=== PATIENT | female | born 1960 | race Caucasian/White ===

== ENCOUNTER → 2017-01-15 | Outpatient (CLI) | payer OTHER ==
[~2017-01-15] MED LIST: ASPI81CH CHEW; BAYEMIS; CALC1TAB87 PO; GABA300C5 PO; GLUCTES27; IPRASOL INH; METF500T PO; MULT-8; OMEP20TA PO; PRED50 PO; WOMETAB2 PO; [UNRECOGNIZED DRUG - CODE]; [UNRECOGNIZED DRUG - CODE]
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
== END ==
LOC: HRAD 12:27
PROVIDERS: ATTEND Family Medicine
DX: M25.561 Pain in right knee (principal); M25.512 Pain in left shoulder
CPT/HCPCS: 73030; 73564

== ENCOUNTER → 2017-01-15 | Outpatient (CLI) | payer OTHER ==
[2017-01-15 09:17] LABS: AUTOMATED NEUTROPHIL # 3.3 TH/MM3 (1.8-7.7); BASOPHIL % 0.8 % (0.0-2.0); EOSINOPHIL # 0.1 TH/MM3 (0-0.4); EOSINOPHIL % 1.6 % (0.0-4.0); HEMATOCRIT 39.1 % (35.0-46.0); HEMO FLAGS DIFF FINAL; LYMPH % 35.2 % (9.0-44.0); MEAN CELL VOLUME 79.5 FL (80.0-100.0); MEAN CORPUSCULAR HEMOGLOBIN 26.2 PG (27.0-34.0); MEAN CORPUSCULAR HGB CONC 32.9 % (32.0-36.0); MONO % 5.6 % (0.0-8.0); NEUT % 56.8 % (16.0-70.0); PLATELET COUNT 239 TH/MM3 (150-450); RED BLOOD COUNT 4.92 MIL/MM3 (4.00-5.30); RED CELL DISTRIBUTION WIDTH 15.3 % (11.6-17.2); WHITE BLOOD COUNT 5.8 TH/MM3 (4.0-11.0)
[2017-01-15 10:01] LABS: ALKALINE PHOSPHATASE 104 U/L (45-117); ALT (GPT) 24 U/L (10-53); ANION GAP 8 MEQ/L (5-15); AST (GOT) 26 U/L (15-37); BICARBONATE 25.4 MEQ/L (21.0-32.0); BLOOD UREA NITROGEN 10 MG/DL (7-18); CHLORIDE 107 MEQ/L (98-107); GLOMERULAR FILTRATION RATE 78 ML/MIN (>89); GLUCOSE,FASTING 96 MG/DL (74-99); HDL CHOLESTEROL 41.7 MG/DL (40.0-60.0); LDL CHOLESTEROL 123 MG/DL (0-99); POTASSIUM 4.4 MEQ/L (3.5-5.1); SODIUM (NA) 140 MEQ/L (136-145); TOTAL BILIRUBIN ADULT 0.6 MG/DL (0.2-1.0)
[2017-01-15 15:51] LABS: HEMOGLOBIN A1a 1.1 %; HEMOGLOBIN A1b 1.1 %; HEMOGLOBIN Ao 84.9 %; HEMOGLOBIN F 0.9 %; HEMOGLOBIN LA1C 1.9 %; HEMOGLOBIN P3 3.6 %
== END ==
LOC: CLAB 08:47
PROVIDERS: ATTEND Family Medicine
DX: E11.9 Type 2 diabetes mellitus without complications (principal); K21.9 Gastro-esophageal reflux disease without esophagitis; S82.91XA Unspecified fracture of right lower leg, initial encounter for closed fracture; X58.XXXA Exposure to other specified factors, initial encounter; E66.9 Obesity, unspecified
CPT/HCPCS: 36415; 80053; 80061; 83036; 84443; 85025

== ENCOUNTER 2017-05-03 15:09 | Emergency (ER) | payer OTHER ==
[~2017-05-03] VITALS: Ht 162.6 cm; Wt 120.0 kg
[~2017-05-03 15:09] MED LIST changes: -IPRASOL INH; -MULT-8; -PRED50 PO; -[UNRECOGNIZED DRUG - CODE]; -[UNRECOGNIZED DRUG - CODE]
[2017-05-03 15:11] VITALS: BP 164/87; PULSE 86; RESP 19; TEMP 98.7; O2SAT 96
--- NOTE | 2017-05-03 15:26 | PD ---
HPI Chief Complaint: Respiratory Distress Time Seen by Provider: 15:26 Travel History International Travel<30 days: No Contact w/Intl Traveler<30days: No Traveled to known affect area: No History of Present Illness HPI 56-year-old female history of chronic bronchitis presents to the emergency department for what feels like an exacerbation of her bronchitis. Patient states she has been out of her nebulized treatments and has been unable to take them. Her albuterol inhaler was not helping her symptoms completely. Symptoms have been worsening over the last 3 days. Denies any productive cough. Denies chest pain. Denies any fever or chills. Has no other symptoms to report. PFSH Past Medical History Hx Anticoagulant Therapy: Yes (BABY ASPIRIN DAILY TOOK THIS AM ) Arthritis: Yes Diabetes: Yes (TYPE II METFORMIN 500 BID TOOK THIS AM ) Diminished Hearing: No GERD: Yes Hypertension: Yes Respiratory: Yes (CHRONIC BRONCHITIS ) Immunizations Current: No ?: Not Menopausal: Yes Tubal Ligation: Yes (09/1986) Past Surgical History Joint Replacement: Yes (KNEE RECONSTRUCTIVE SURGERY 2015) Other Surgery: Yes Social History Alcohol Use: No Tobacco Use: No Substance Use: No Allergies-Medications (Allergen,Severity, Reaction): Coded Allergies: No Known Allergies (Unverified , 05/03/17) Reported Meds & Prescriptions Reported Meds & Active Scripts Active Prednisone 50 Mg Tab 50 Mg PO DAILY 5 Days Duoneb (Ipratropium-Albuterol Neb) 0.5-2.5 Mg/3 Ml Neb 1 Nebule INH Q4HR NEB PRN Rashard Contour Next Blood Test Strips (Blood Glucose Test Strips) 1 Rosamaria Rosamaria 1 Strip .ROUTE DIRECTED Rashard Microlet Lancets 1 Mis Mis 1 Ea .ROUTE DIRECTED Metformin (Metformin HCl) 500 Mg Tab 500 Mg PO BIDPC With meals Omeprazole 20 Mg Tab 20 Mg PO DAILY Gabapentin 300 Mg Cap 300 Mg PO TID Reported Womens Daily Formula (Multiple Vitamins W/ Minerals) 1 Tab Tab 1 Tab PO DAILY Aspirin 81 Mg Chew 81 Mg CHEW DAILY Calcium 600 with Vitamin D (Calcium Carbonate-Cholecalciferol) 600-400 mg-Unit Tab 1 Tab PO DAILY Review of Systems Except as stated in HPI: all other systems reviewed are Neg Physical Exam Narrative GENERAL: Obese female patient, in no acute distress SKIN: Focused skin assessment warm/dry. HEAD: Atraumatic. Normocephalic. EYES: Pupils equal and round. No scleral icterus. No injection or drainage. ENT: No nasal bleeding or discharge. Mucous membranes pink and moist. NECK: Trachea midline. No JVD. CARDIOVASCULAR: Regular rate and rhythm. No murmur appreciated. RESPIRATORY: No accessory muscle use. Diminished throughout. Breath sounds equal bilaterally. GASTROINTESTINAL: Abdomen soft, non-tender, nondistended. Hepatic and splenic margins not palpable. MUSCULOSKELETAL: No obvious deformities. No clubbing. No cyanosis. No edema. NEUROLOGICAL: Awake and alert. No obvious cranial nerve deficits. Motor grossly within normal limits. Normal speech. PSYCHIATRIC: Appropriate mood and affect; insight and judgment normal. Data Data Last Documented VS Vital Signs Date Time Temp Pulse Resp B/P Pulse Ox O2 Delivery O2 Flow Rate FiO2 05/03/17 15:49 88 18 97 Nasal Cannula 2 05/03/17 15:11 98.7 164/87 Orders Complete Blood Count With Diff (05/03/17 15:33) Basic Metabolic Panel (Bmp) (05/03/17 15:33) B-Type Natriuretic Peptide (05/03/17 15:33) Iv Access Insert/Monitor (05/03/17 15:33) Electrocardiogram (05/03/17 15:33) Ecg Monitoring (05/03/17 15:33) Oximetry (05/03/17 15:33) Oxygen Administration (05/03/17 15:33) Chest, Single Ap (05/03/17 15:33) Sodium Chloride 0.9% Flush (Ns Flush) (05/03/17 15:45) Methylprednisolone So Succ Inj (Solumedr (05/03/17 15:45) Albuterol-Ipratropium Neb (Duoneb Neb) (05/03/17 15:45) Labs Laboratory Tests Test 05/03/17 15:44 White Blood Count 7.7 TH/MM3 Red Blood Count 4.74 MIL/MM3 Hemoglobin 12.4 GM/DL Hematocrit 37.8 % Mean Corpuscular Volume 79.8 FL Mean Corpuscular Hemoglobin 26.3 PG Mean Corpuscular Hemoglobin 32.9 % Concent Red Cell Distribution Width 16.0 % Platelet Count 248 TH/MM3 Mean Platelet Volume 8.0 FL Neutrophils (%) (Auto) 55.1 % Lymphocytes (%) (Auto) 35.4 % Monocytes (%) (Auto) 6.9 % Eosinophils (%) (Auto) 1.8 % Basophils (%) (Auto) 0.8 % Neutrophils # (Auto) 4.2 TH/MM3 Lymphocytes # (Auto) 2.7 TH/MM3 Monocytes # (Auto) 0.5 TH/MM3 Eosinophils # (Auto) 0.1 TH/MM3 Basophils # (Auto) 0.1 TH/MM3 CBC Comment DIFF FINAL Differential Comment Sodium Level 139 MEQ/L Potassium Level 3.8 MEQ/L Chloride Level 106 MEQ/L Carbon Dioxide Level 27.1 MEQ/L Anion Gap 6 MEQ/L Blood Urea Nitrogen 7 MG/DL Creatinine 0.72 MG/DL Estimat Glomerular Filtration 84 ML/MIN Rate Random Glucose 109 MG/DL Calcium Level 8.5 MG/DL B-Type Natriuretic Peptide 16 PG/ML MDM Medical Decision Making Medical Screen Exam Complete: Yes Emergency Medical Condition: Yes Medical Record Reviewed: Yes Differential Diagnosis Bronchitis versus pneumonia versus influenza versus exacerbation of COPD Narrative Course 56 year old female presents to emergency department for evaluation. Patient appears well and without distress. She does have diminished sounds throughout. She is given IV Solu-Medrol as well as 3 DuoNeb treatments. Upon reassessment , she reports marked improvement in her symptoms. She'll begin refill of DuoNeb treatments and encouraged to use them regularly. She is also counseled on these steroids in the transient increase in her blood glucose. She agrees to monitor this closely. She agrees to return immediately if any acute worsening of symptoms. Diagnosis Primary Impression: Exacerbation of chronic bronchiolitis Referrals: Primary Care Physician Patient Instructions: Chronic Bronchitis (ED), General Instructions Additional Instructions: Continue medication as already prescribed Monitor blood glucose closely as steroids will cause an increase in her blood glucose. Follow-up with a primary care provider Return immediately with any acute worsening of symptoms Med/Other Pt SpecificInfo: Prescription(s) given Scripts Prednisone 50 Mg Tab50 Mg PO DAILY 5 Days Ref 0 Prov:Calista Berg 05/03/17 Ipratropium-Albuterol Neb (Duoneb)0.5-2.5 Mg/3 Ml Neb1 Nebule INH Q4HR NEB PRN ( SOB/WHEEZING) #120 NEBULE Ref 0 Prov:Calista Berg 05/03/17 Disposition: 01 DISCHARGE HOME Condition: Stable Calista Berg May 03, 2017 15:26
[2017-05-03] MEDS ORDERED: SODIUM CHLORIDE 0.9% FLUSH 10 ML FLUSH IVF PRN (15:45)
[2017-05-03] MEDS ORDERED: methylPREDNISolone SOD SUCC 125 MG/2 ML VIAL IVP ONE (15:45)
[2017-05-03 15:49] VITALS: O2SAT 97
[2017-05-03 16:03] LABS: AUTOMATED NEUTROPHIL # 4.2 TH/MM3 (1.8-7.7); BASOPHIL # 0.1 TH/MM3 (0-0.2); BASOPHIL % 0.8 % (0.0-2.0); EOSINOPHIL # 0.1 TH/MM3 (0-0.4); EOSINOPHIL % 1.8 % (0.0-4.0); HEMATOCRIT 37.8 % (35.0-46.0); HEMO FLAGS DIFF FINAL; LYMPH % 35.4 % (9.0-44.0); LYMPHOCYTE # 2.7 TH/MM3 (1.0-4.8); MEAN CELL VOLUME 79.8 FL (80.0-100.0); MEAN CORPUSCULAR HEMOGLOBIN 26.3 PG (27.0-34.0); MEAN CORPUSCULAR HGB CONC 32.9 % (32.0-36.0); MONO % 6.9 % (0.0-8.0); NEUT % 55.1 % (16.0-70.0); PLATELET COUNT 248 TH/MM3 (150-450); RED BLOOD COUNT 4.74 MIL/MM3 (4.00-5.30); WHITE BLOOD COUNT 7.7 TH/MM3 (4.0-11.0)
--- NOTE | 2017-05-03 16:09 | RADRPT ---
EXAM DATE/TIME: 05/03/2017 15:40 [facility] COMPARISON: SHOULDER LEFT COMPLETE (>2VWS), January 15, 2017, 12:57. INDICATIONS : Shortness of breath and chest tightness. MEDICAL HISTORY : None. SURGICAL HISTORY : None. ENCOUNTER: Initial ACUITY: 1 day PAIN SCORE: 0/10 LOCATION: Bilateral chest FINDINGS: There is mild cardiomegaly. There are chronic interstitial changes within the pulmonary parenchyma. T he lungs are otherwise clear. The visualized bony structures are grossly intact. CONCLUSION: Heart is at the upper limits of normal in size. The lungs are clear. No acute abnormality is identifi ed. Kevin Lindsey MD on May 03, 2017 at 16:05 Board Certified Radiologist. This report was verified electronically.
[2017-05-03 16:26] LABS: BICARBONATE 27.1 MEQ/L (21.0-32.0); POTASSIUM 3.8 MEQ/L (3.5-5.1)
[2017-05-03] MEDS: RESP: ALBUTEROL 2.5 MG/IPRATROPIUM 0.5 MG NEB (SCH) INH ×2 (16:49→16:50)
[2017-05-03] MEDS ORDERED: IPRASOL INH (17:12)
[2017-05-03] MEDS ORDERED: PRED50 PO (17:12)
--- NOTE | 2017-05-04 12:28 | EKG ---
Date Performed: 05/03/2017 Time Performed: 15:43:38 PTAGE: 56 years EKG: Sinus rhythm LOW QRS VOLTAGE IN PRECORDIAL LEADS MODERATE VOLTAGE CRITERIA FOR LVH, CONSIDER NORMAL VARIANT POSSI BLE ANTERIOR MYOCARDIAL INFARCTION BORDERLINE ECG NO PREVIOUS TRACING DOCTOR: Rolando Duncan Interpretating Date/Time 05/04/2017 12:24:29
== END 2017-05-03 18:13 | disposition home or self-care (01) ==
LOC: NEPC 15:09
DX: J21.9 Acute bronchiolitis, unspecified (principal); J42 Unspecified chronic bronchitis; R06.02 Shortness of breath; E11.8 Type 2 diabetes mellitus with unspecified complications; I51.7 Cardiomegaly; Z79.82 Long term (current) use of aspirin
CPT/HCPCS: 71010; 80048; 83880; 85025; 93005; 94640; 94664; 96374; 99285; J2930

== ENCOUNTER 2017-11-25 14:07 | Observation (INO) | payer OTHER ==
[~2017-11-25] VITALS: Ht 165.1 cm; Wt 136.5 kg
[~2017-11-25 14:07] MED LIST changes: +ASPI-516 CHEW; -ASPI81CH CHEW; +IPRASOL INH; -OMEP20TA PO; +OMEP20TA93 PO; +PRED50 PO
[2017-11-25 14:13] VITALS: BP 206/102; PULSE 83; RESP 20; TEMP 98.2; O2SAT 97
--- NOTE | 2017-11-25 15:29 | RADRPT ---
EXAM DATE/TIME: 11/25/2017 15:06 [facility] COMPARISON: No previous studies available for comparison. INDICATIONS : Pressure in chest, vertigo and shortness of breath for several hours today MEDICAL HISTORY : chronic bonchitis SURGICAL HISTORY : bilateral tib/fib ORIF ENCOUNTER: Initial ACUITY: 1 day PAIN SCORE: 5/10 LOCATION: Bilateral chest FINDINGS: PA and lateral views of the chest demonstrate the lungs to be symmetrically aerated without evidence of mass, infiltrate or effusion. The cardiomediastinal contours are unremarkable. Degenerative spon dylosis of the thoracic spine. Osseous structures are intact. CONCLUSION: 1. No acute cardiopulmonary disease. Wero Solares MD on November 25, 2017 at 15:12 Board Certified Radiologist. This report was verified electronically.
[2017-11-25 16:23] LABS: AUTOMATED NEUTROPHIL # 3.8 TH/MM3 (1.8-7.7); BASOPHIL % 0.7 % (0.0-2.0); EOSINOPHIL # 0.1 TH/MM3 (0-0.4); EOSINOPHIL % 1.6 % (0.0-4.0); HEMATOCRIT 40.3 % (35.0-46.0); HEMOGLOBIN 13.5 GM/DL (11.6-15.3); LYMPH % 38.3 % (9.0-44.0); LYMPHOCYTE # 2.8 TH/MM3 (1.0-4.8); MEAN CELL VOLUME 80.7 FL (80.0-100.0); MEAN CORPUSCULAR HGB CONC 33.5 % (32.0-36.0); MEAN PLATELET VOLUME 8.3 FL (7.0-11.0); MONO % 7.2 % (0.0-8.0); MONOCYTE # 0.5 TH/MM3 (0-0.9); NEUT % 52.2 % (16.0-70.0); PLATELET COUNT 252 TH/MM3 (150-450); RED BLOOD COUNT 4.99 MIL/MM3 (4.00-5.30); RED CELL DISTRIBUTION WIDTH 15.7 % (11.6-17.2); WHITE BLOOD COUNT 7.4 TH/MM3 (4.0-11.0)
[2017-11-25 16:33] LABS: INTERNATIONAL NORMALIZED RATIO 1.1 RATIO; PROTHROMBIN TIME - PATIENT 10.7 SEC (9.8-11.6)
[2017-11-25 16:45] LABS: ALBUMIN 3.2 GM/DL (3.4-5.0); ALT (GPT) 58 U/L (10-53); AST (GOT) 51 U/L (15-37); BICARBONATE 26.7 MEQ/L (21.0-32.0); BLOOD UREA NITROGEN 7 MG/DL (7-18); CALCIUM 8.9 MG/DL (8.5-10.1); CHLORIDE 103 MEQ/L (98-107); CREATININE 0.78 MG/DL (0.50-1.00); GLOMERULAR FILTRATION RATE 76 ML/MIN (>89); GLUCOSE,RANDOM 101 MG/DL (74-106); MAGNESIUM 2.2 MG/DL (1.5-2.5); SODIUM (NA) 138 MEQ/L (136-145)
[2017-11-25 16:48] LABS: ALKALINE PHOSPHATASE 123 U/L (45-117); TOTAL BILIRUBIN ADULT 0.4 MG/DL (0.2-1.0); TOTAL PROTEIN 8.3 GM/DL (6.4-8.2); TROPONIN I LESS THAN 0.02 NG/ML (0.02-0.05)
[2017-11-25 19:53] VITALS: BP 146/82; PULSE 82; TEMP 98.3; O2SAT 96
--- NOTE | 2017-11-25 20:27 | PD ---
HPI Chief Complaint: Cardiac Complaint Time Seen by Provider: 20:05 Travel History International Travel<30 days: No Contact w/Intl Traveler<30days: No Traveled to known affect area: No History of Present Illness HPI 56yo F with PMH of DM, obesity here with c/o chest pain since this morning. States it feels like an elephant sitting on her chest. Chest pain is pressure like and midsternal, nonradiating and constant. No exacerbating or alleviating factors. Pt also had nausea, vomiting and nonbloody diarrhea for 4 days. However, denies any abdominal pain, sob, fever, blood in stool. Pt has no safety representative and never had chest pain before. Denies any stress test. PFSH Past Medical History Hx Anticoagulant Therapy: Yes (BABY ASPIRIN DAILY TOOK THIS AM ) Arthritis: Yes Diabetes: Yes (TYPE II METFORMIN 500 BID TOOK THIS AM ) Patient Takes Glucophage: Yes Diminished Hearing: No GERD: Yes Hypertension: Yes Respiratory: Yes (CHRONIC BRONCHITIS ) Immunizations Current: No Tetanus Vaccination: > 5 Years Menopausal: Yes Tubal Ligation: Yes (09/1986) Past Surgical History Joint Replacement: Yes (KNEE RECONSTRUCTIVE SURGERY 2015) Other Surgery: Yes (tubal ligatation) Social History Alcohol Use: No Tobacco Use: No Substance Use: No Allergies-Medications (Allergen,Severity, Reaction): Coded Allergies: No Known Allergies (Unverified Allergy, Unknown, 11/26/17) Reported Meds & Prescriptions Reported Meds & Active Scripts Active Rashard Contour Next Blood Test Strips (Blood Glucose Test Strips) 1 Rosamaria Rosamaria 1 Strip .ROUTE BID Rashard Microlet Lancets 1 Mis Mis 1 Ea .ROUTE BID Omeprazole 20 Mg Tab 20 Mg PO DAILY Metformin (Metformin HCl) 500 Mg Tab 500 Mg PO BIDPC With meals Duoneb (Ipratropium-Albuterol Neb) 0.5-2.5 Mg/3 Ml Neb 1 Nebule INH Q4HR NEB PRN Reported Womens Daily Formula (Multiple Vitamins W/ Minerals) 1 Tab Tab 1 Tab PO DAILY Aspirin 81 Mg Chew 81 Mg CHEW DAILY Calcium 600 with Vitamin D (Calcium Carbonate-Cholecalciferol) 600-400 mg-Unit Tab 1 Tab PO DAILY Review of Systems Except as stated in HPI: all other systems reviewed are Neg Physical Exam Narrative GENERAL: 56yo F in mild distress. SKIN: Focused skin assessment warm/dry. HEAD: Atraumatic. Normocephalic. CARDIOVASCULAR: Regular rate and rhythm. No murmur appreciated. RESPIRATORY: No accessory muscle use. Clear to auscultation. Breath sounds equal bilaterally. GASTROINTESTINAL: Abdomen soft, non-tender, nondistended. MUSCULOSKELETAL: No obvious deformities. No clubbing. No cyanosis. Trace bilateral lower extremity edema. NEUROLOGICAL: Awake and alert. No obvious cranial nerve deficits. Motor grossly within normal limits. Normal speech. PSYCHIATRIC: Appropriate mood and affect; insight and judgment normal. Data Data Last Documented VS Vital Signs Date Time Temp Pulse Resp B/P (MAP) Pulse Ox O2 Delivery O2 Flow Rate FiO2 11/25/17 20:58 88 20 137/81 (99) 93 Room Air 11/25/17 19:53 98.3 Orders Orders Electrocardiogram (11/25/17 14:35) Ckmb (Isoenzyme) Profile (11/25/17 14:35) Complete Blood Count With Diff (11/25/17 14:35) Comprehensive Metabolic Panel (11/25/17 14:35) Magnesium (Mg) (11/25/17 14:35) Prothrombin Time / Inr (Pt) (11/25/17 14:35) Act Partial Throm Time (Ptt) (11/25/17 14:35) Troponin I (11/25/17 14:35) Chest, Pa & Lat (11/25/17 14:35) CKMB (11/25/17 15:47) CKMB% (11/25/17 15:47) Ondansetron Inj (Zofran Inj) (11/25/17 20:30) B-Type Natriuretic Peptide (11/25/17 20:18) Aspirin Chew (Aspirin Chew) (11/25/17 20:30) Nitroglycerin Sl (Nitrostat Sl) (11/25/17 20:30) Activity Bed Rest With Brp (11/25/17 21:54) Vital Signs (Adult) Q4H (11/25/17 21:54) Cardiac Rhythm .As Directed (11/25/17 21:54) Notify Dr: Other .PRN (11/25/17 21:54) Notify Parameters (11/25/17 21:54) Resp Oxygen Nasal Cannula (11/25/17 ) Ckmb (Isoenzyme) Profile (11/25/17 21:54) Ckmb (Isoenzyme) Profile (11/26/17 00:54) Troponin I (11/25/17 21:54) Troponin I (11/26/17 00:54) Electrocardiogram (11/25/17 21:54) Electrocardiogram (11/26/17 00:54) ^ Obtain (11/25/17 21:54) Sodium Chloride 0.9% Flush (Ns Flush) (11/25/17 22:00) Sodium Chloride 0.9% Flush (Ns Flush) (11/26/17 09:00) Gas Worker / Telemetry [id number].[id number] (11/25/17 21:54) Admit Order (Ed Use Only) (11/25/17 21:54) CKMB (11/25/17 22:12) CKMB% (11/25/17 22:12) CKMB (11/26/17 02:35) CKMB% (11/26/17 02:35) Labs Laboratory Tests Test 11/25/17 15:47 11/25/17 20:35 White Blood Count 7.4 TH/MM3 Red Blood Count 4.99 MIL/MM3 Hemoglobin 13.5 GM/DL Hematocrit 40.3 % Mean Corpuscular Volume 80.7 FL Mean Corpuscular Hemoglobin 27.0 PG Mean Corpuscular Hemoglobin Concent 33.5 % Red Cell Distribution Width 15.7 % Platelet Count 252 TH/MM3 Mean Platelet Volume 8.3 FL Neutrophils (%) (Auto) 52.2 % Lymphocytes (%) (Auto) 38.3 % Monocytes (%) (Auto) 7.2 % Eosinophils (%) (Auto) 1.6 % Basophils (%) (Auto) 0.7 % Neutrophils # (Auto) 3.8 TH/MM3 Lymphocytes # (Auto) 2.8 TH/MM3 Monocytes # (Auto) 0.5 TH/MM3 Eosinophils # (Auto) 0.1 TH/MM3 Basophils # (Auto) 0.0 TH/MM3 CBC Comment DIFF FINAL Differential Comment Prothrombin Time 10.7 SEC Prothromb Time International Ratio 1.1 RATIO Activated Partial Thromboplast Time 25.4 SEC Blood Urea Nitrogen 7 MG/DL Creatinine 0.78 MG/DL Random Glucose 101 MG/DL Total Protein 8.3 GM/DL Albumin 3.2 GM/DL Calcium Level 8.9 MG/DL Magnesium Level 2.2 MG/DL Alkaline Phosphatase 123 U/L Aspartate Amino Transf (AST/SGOT) 51 U/L Alanine Aminotransferase (ALT/SGPT) 58 U/L Total Bilirubin 0.4 MG/DL Sodium Level 138 MEQ/L Potassium Level 4.0 MEQ/L Chloride Level 103 MEQ/L Carbon Dioxide Level 26.7 MEQ/L Anion Gap 8 MEQ/L Estimat Glomerular Filtration Rate 76 ML/MIN Total Creatine Kinase 118 U/L Creatine Kinase MB LESS THAN 0.5 NG/ML Troponin I LESS THAN 0.02 NG/ML B-Type Natriuretic Peptide 10 PG/ML MDM Medical Decision Making Medical Screen Exam Complete: Yes Emergency Medical Condition: Yes Interpretation(s) EKG: NSR 78bpm. LAD. LVH. TWI III. Differential Diagnosis ACS vs. Pneumonia vs. pericarditis vs. GERD vs. gastroenteritis vs. dehydration Narrative Course 56yo F with midsternal chest pain today. Said it is pressure like and has improved a little on its own, about a 5 out of 10 now. Took aspirin 81mg PO today. Labs reviewed, no leukocytosis. AST/ALT and alk phos elevated. Pt has no abdominal pain on exam. Pt said that she had elevated liver enzymes in October 2017 and her primary care physician is addressing that. Troponin negative. CXR negative. Will give more aspirin and sublingual nitro PRN chest pain. Will admit to chest pain center. Pt reevaluated after sublingual nitro and said pain has improved. Diagnosis Primary Impression: Chest pain Qualified Codes: R07.9 - Chest pain, unspecified Admitting Information Admitting Physician Requests: Deloris Shepard DO Nov 25, 2017 20:27
[2017-11-25] MEDS ORDERED: NITROGLYCERIN 0.4 MG SL 25 TABS/BTL SL PRN (20:30)
[2017-11-25] MEDS ORDERED: ONDANSETRON HCL 4 MG/2 ML VIAL IV PUSH ONE (20:30)
[2017-11-25] MEDS ORDERED: ASPIRIN 81 MG CHEW TAB PO ONE (20:30)
[2017-11-25 20:58] VITALS: BP 137/81; PULSE 88; RESP 20; O2SAT 93
[2017-11-25] MEDS ORDERED: IOHEXOL 350 MG/ML 100 ML BTL (for Cath Lab) OTHER ONE (21:57)
[2017-11-25] MEDS ORDERED: IOHEXOL 350 MG/ML 50 ML BTL (for Cath Lab) OTHER ONE (21:57)
[2017-11-25] MEDS ORDERED: SODIUM CHLORIDE 0.9% FLUSH 10 ML FLUSH IV FLUSH PRN (22:00)
[2017-11-25 22:58] LABS: TROPONIN I LESS THAN 0.02 NG/ML (0.02-0.05)
[2017-11-26] VITALS (7 sets, daily range): BP systolic 92–138; BP diastolic 58–77; PULSE 69–86; RESP 16–20; TEMP 97.5–98.5; O2SAT 93–96
[2017-11-26 03:04] LABS: TROPONIN I LESS THAN 0.02 NG/ML (0.02-0.05)
[2017-11-26] MEDS ORDERED: ONDANSETRON HCL 4 MG/2 ML VIAL IV PUSH PRN (08:00)
[2017-11-26] MEDS ORDERED: ACETAMINOPHEN 500 MG CPLT PO PRN (08:00)
--- NOTE | 2017-11-26 08:40 | HHI.HP ---
[facility] Primary Care Physician Dr. Padilla Chief Complaint Chest pain History of Present Illness 56-year-old female with history of type 2 diabetes [id number], GERD, and vertigo presents to the emergency room for further evaluation of chest pain. Onset yesterday 10 AM. History of vertigo always accompanied also with chest pressure. Yesterday developed vertigo and chest pressure although duration lasted longer than normal, approximately 7 hours. Severity moderate. No radiation. No associated symptoms nausea, vomiting, dyspnea, or diaphoresis. No known precipitating or relieving factors. Normally she takes Dramamine with relief. Yesterday took Dramamine without relief therefore came to the ER for further evaluation. Review of Systems General: No fatigue,weakness, fever, chills, or recent illness change in appetite. Has been adjusted health. HEENT: No MATAMOROS, no vision changes, no nasal congestion or drainage, no dysphasia CV: As stated above. Currently chest pain and pressure free. No known coronary artery disease. RESP: No SOB, cough, wheeze, no recent upper respiratory infection. GI: No nausea, vomiting, bowel changes, diarrhea, constipation, pain, distention , melena, or blood in the stool. : No dysuria, urgency, frequency EXT: No lower leg edema, no paraesthesias MS: No discomfort or change in ROM NEURO: No change in memory, difficulty with balance, LOC, motor/sensory deficits PSYCH: No anxiety, depression, SKIN: No rashes, no concerning lesions Past Family Social History Allergies: Coded Allergies: No Known Allergies (Unverified Allergy, Unknown, 11/26/17) Past Medical History Type 2 diabetes [id number]-[id number], GERD, chronic bronchitis, vertigo Past Surgical History Tubal ligation Reported Medications Reported Meds & Active Scripts Active Rashard Contour Next Blood Test Strips (Blood Glucose Test Strips) 1 Rosamaria Rosamaria 1 Strip .ROUTE BID Rashard Microlet Lancets 1 Mis Mis 1 Ea .ROUTE BID Omeprazole 20 Mg Tab 20 Mg PO DAILY Metformin (Metformin HCl) 500 Mg Tab 500 Mg PO BIDPC With meals Duoneb (Ipratropium-Albuterol Neb) 0.5-2.5 Mg/3 Ml Neb 1 Nebule INH Q4HR NEB PRN Womens Daily Formula (Multiple Vitamins W/ Minerals) 1 Tab Tab 1 Tab PO DAILY Aspirin 81 Mg Chew 81 Mg CHEW DAILY Calcium 600 with Vitamin D (Calcium Carbonate-Cholecalciferol) 600-400 mg-Unit Tab 1 Tab PO DAILY Active Ordered Medications Current Medications Medications (Trade) Dose Ordered Sig/Zhou Route Start Time Stop Time Status Last Admin (Nitrostat Sl) 0.4 mg Q5M PRN SL 11/25/17 20:30 (NS Flush) 2 ml UNSCH PRN IV FLUSH 11/25/17 22:00 (NS Flush) 2 ml BID IV FLUSH 11/26/17 09:00 (Tylenol) 500 mg Q4H PRN PO 11/26/17 08:00 UNV (Zofran Inj) 4 mg Q6H PRN IV PUSH 11/26/17 08:00 UNV (Aspirin) 325 mg DAILY PO 11/26/17 09:00 UNV Non-Formulary Medication 20 mg DAILY PO 11/26/17 09:00 UNV Family History Noncontributory for early cardiovascular disease. Social History Known diabetes. No known hypertension or hyperlipidemia. Past cardiac testing None Physical Exam Vital Signs Vital Signs Date Time Temp Pulse Resp B/P (MAP) Pulse Ox O2 Delivery O2 Flow Rate FiO2 11/26/17 04:35 98.2 69 20 92/67 (75) 11/25/17 20:58 88 20 137/81 (99) 93 Room Air 11/25/17 20:07 Room Air 11/25/17 20:02 (136) 11/25/17 19:53 98.3 82 146/82 (103) 96 11/25/17 14:13 98.2 83 20 206/102 (136) 97 Physical Exam GENERAL: Alert WN, WD, NAD, pleasant, morbidly obese female HEAD: NC, AT NECK: Supple, no masses, trachea midline CV: RRR, without murmur, rub, gallop, no JVD, S1-S2 no S3-S4. Chest wall nontender with palpation. RESP: Clear lungs throughout bilateral, no crackles, wheeze, rhonchi, symmetrical chest rise, nonlabored, able to speak in full sentences ABD: Soft, NT, ND, no masses, positive bowel tones EXT: Pulses +24, no dependent edema MS: Normal tone 4 extremities, no obvious deformities, full range of motion NEURO: CN II through CN XII grossly intact, motor strength 5/5 PSYCH: A+O 3, pleasant affect, appropriate speech, mood, insight and judgment SKIN: Normal turgor, normal texture Laboratory Laboratory Tests Test 11/25/17 15:47 11/25/17 20:35 11/25/17 22:12 11/26/17 02:35 White Blood Count 7.4 Red Blood Count 4.99 Hemoglobin 13.5 Hematocrit 40.3 Mean Corpuscular Volume 80.7 Mean Corpuscular Hemoglobin 27.0 Mean Corpuscular Hemoglobin Concent 33.5 Red Cell Distribution Width 15.7 Platelet Count 252 Mean Platelet Volume 8.3 Neutrophils (%) (Auto) 52.2 Lymphocytes (%) (Auto) 38.3 Monocytes (%) (Auto) 7.2 Eosinophils (%) (Auto) 1.6 Basophils (%) (Auto) 0.7 Neutrophils # (Auto) 3.8 Lymphocytes # (Auto) 2.8 Monocytes # (Auto) 0.5 Eosinophils # (Auto) 0.1 Basophils # (Auto) 0.0 CBC Comment DIFF FINAL Differential Comment Prothrombin Time 10.7 Prothromb Time International Ratio 1.1 Activated Partial Thromboplast Time 25.4 Blood Urea Nitrogen 7 Creatinine 0.78 Random Glucose 101 Total Protein 8.3 Albumin 3.2 Calcium Level 8.9 Magnesium Level 2.2 Alkaline Phosphatase 123 Aspartate Amino Transf (AST/SGOT) 51 Alanine Aminotransferase (ALT/SGPT) 58 Total Bilirubin 0.4 Sodium Level 138 Potassium Level 4.0 Chloride Level 103 Carbon Dioxide Level 26.7 Anion Gap 8 Estimat Glomerular Filtration Rate 76 Total Creatine Kinase 118 113 109 Creatine Kinase MB LESS THAN 0.5 LESS THAN 0.5 LESS THAN 0.5 Troponin I LESS THAN 0.02 LESS THAN 0.02 LESS THAN 0.02 B-Type Natriuretic Peptide 10 Result Diagram: 11/25/17 1547 11/25/17 1547 Imaging Last 48 hours Impressions Chest X-Ray 11/25/17 1435 Signed Impressions: Service Date/Time: Saturday, November 25, 2017 15:06 - CONCLUSION: 1. No acute cardiopulmonary disease. Wero Solares MD Course EKG Normal sinus rhythm, normal axis, no ST or T-segment changes Caprini VTE Risk Assessment Caprini VTE Risk Assessment: No/Low Risk (score <= 1) Caprini Risk Assessment Model Point Value = 1 Point Value = 2 Point Value = 3 Point Value = 5 Age 41-60 Minor surgery BMI > 25 kg/m2 Swollen legs Varicose veins or History of unexplained or recurrent spontaneous Oral contraceptives or hormone replacement Sepsis (< 1 month) Serious lung disease, including pneumonia (< 1 month) Abnormal pulmonary function Acute myocardial infarction Congestive heart failure (< 1 month) History of inflammatory bowel disease Medical patient at bed rest Age 61-74 Arthroscopic surgery Major open surgery (> 45 min) Laparoscopic surgery (> 45 min) Malignancy Confined to bed (> 72 hours) Immobilizing plaster cast Central venous access Age >= 75 History of VTE Family history of VTE Factor V Leiden Prothrombin [id number] Lupus anticoagulant Anticardiolipin antibodies Elevated serum homocysteine Heparin-induced thrombocytopenia Other congenital or acquired thrombophilia Stroke (< 1 month) Elective arthroplasty Hip, pelvis, or leg fracture Acute spinal cord injury (< 1 month) Prophylaxis Regimen Total Risk Factor Score Risk Level Prophylaxis Regimen 0-1 Low Early ambulation 2 Moderate Order ONE of the following: *Sequential Compression Device (SCD) *Heparin 5000 units SQ BID 3-4 Higher Order ONE of the following medications: *Heparin 5000 units SQ TID *Enoxaparin/Lovenox 40 mg SQ daily (WT < 150 kg, CrCl > 30 mL/min) *Enoxaparin/Lovenox 30 mg SQ daily (WT < 150 kg, CrCl > 10-29 mL/min) *Enoxaparin/Lovenox 30 mg SQ BID (WT < 150 kg, CrCl > 30 mL/min) AND/OR *Sequential Compression Device (SCD) 5 or more Highest Order ONE of the following medications: *Heparin 5000 units SQ TID (Preferred with Epidurals) *Enoxaparin/Lovenox 40 mg SQ daily (WT < 150 kg, CrCl > 30 mL/min) *Enoxaparin/Lovenox 30 mg SQ daily (WT < 150 kg, CrCl > 10-29 mL/min) *Enoxaparin/Lovenox 30 mg SQ BID (WT < 150 kg, CrCl > 30 mL/min) AND *Sequential Compression Device (SCD) Assessment and Plan Assessment and Plan #1 Atypical chest pain-admitted chest pain center. Ruled out with 3 sets of EKGs, cardiac enzymes, monitor overnight. Seen and evaluated by Dr. Theodore Geiger. [facility] If unremarkable, plan to discharge home with follow-up with PCP. Patient agreeable and care. #2 Diabetes type 2-hold oral anti glycemic at this time #3 GERD-continue omeprazole 15:45 Lilyan report reviewed and discussed with Dr. Geiger. Patient's story somewhat atypical however due to risk factors will consult cardiology. Discussed with patient in length and agreeable to plan of care. Fely Alaniz Nov 26, 2017 08:40
[2017-11-26] MEDS ORDERED: ASPIRIN 325 MG TAB PO SCH (09:00)
--- NOTE | 2017-11-26 09:08 | EKG ---
Date Performed: 11/26/2017 Time Performed: 01:17:33 PTAGE: 56 years EKG: Sinus rhythm LOW QRS VOLTAGE IN PRECORDIAL LEADS BORDERLINE ECG PREVIOUS TRACING : 11/25/2017 22.09 Since previous tracing, no significant change noted DOCTOR: Theodore Geiger Interpretating Date/Time 11/26/2017 09:07:28
--- NOTE | 2017-11-26 09:11 | EKG ---
Date Performed: 11/25/2017 Time Performed: 22:09:04 PTAGE: 56 years EKG: Sinus rhythm LOW QRS VOLTAGE IN PRECORDIAL LEADS POSSIBLE LEFT VENTRICULAR HYPERTROPHY ABNORMAL ECG PREVIOUS TRACING : 11/25/2017 16.00 Since previous tracing, no significant change noted DOCTOR: Theodore Geiger Interpretating Date/Time 11/26/2017 09:10:39
--- NOTE | 2017-11-26 09:21 | EKG ---
Date Performed: 11/25/2017 Time Performed: 16:00:51 PTAGE: 56 years EKG: Sinus rhythm MODERATE VOLTAGE CRITERIA FOR LVH, CONSIDER NORMAL VARIANT BORDERLINE ECG PREVIOUS TRACING : 05/03/2017 15.43 Since previous tracing, no significant change noted DOCTOR: Theodore Geiger Interpretating Date/Time 11/26/2017 09:21:08
[2017-11-26] MEDS: PANTOPRAZOLE SOD 20 MG DELAYED RELEASE TAB PO SCH (10:01)
[2017-11-26] MEDS: SODIUM CHLORIDE 0.9% FLUSH 10 ML FLUSH IV FLUSH SCH ×2 (10:01→22:41)
[2017-11-26] MEDS ORDERED: REGADENOSON INJ 0.4 MG/5 ML SYR ONE (11:37)
--- NOTE | 2017-11-26 14:49 | RADRPT ---
EXAM DATE/TIME: 11/26/2017 11:18 [facility] COMPARISON: No previous studies available for comparison. INDICATIONS : Midsternal chest pain. Angina. DOSE: 35 mCi Tc99m Myoview at stress. 11 mCi Tc99m Myoview at rest. 0.4 mg Lexiscan STRESS SYMPTOMS: Lightheaded. EJECTION FRACTION: 66% MEDICAL HISTORY : Hypertension. Diabetes mellitus type 2. SURGICAL HISTORY : Tubal ligation. ENCOUNTER: Initial ACUITY: 2 days PAIN SCALE: 3/10 LOCATION: Midsternal chest TECHNIQUE: The patient underwent pharmacologic stress with infusion of prescribed dose. Continuous ECG tracing was monitored during stress. Gated SPECT imaging was performed after stress and conventional SPECT i maging was performed at rest. The examination was performed on a SPECT/CT scanner, both attenuation and non-corrected datasets were reviewed. FINDINGS: DISTRIBUTION: The maximum perfused segment at stress is in the lateral wall. PERFUSION STUDY: Small focal stress-induced perfusion abnormality in the anterolateral and septal wall near the apex. GATED STUDY: There is intact wall motion and thickening without hypokinetic or dyskinetic segments. CONCLUSION: 1. Small focal regions of ischemia in the anterolateral wall and septal wall near the apex. 2. Normal wall motion with EF of 66%. RISK CATEGORY: Low (<1% Annual Mortality Rate) Wero Solares MD on November 26, 2017 at 14:43 Board Certified Radiologist. This report was verified electronically.
[2017-11-26] MEDS ORDERED: HEPARIN-NS/PF INJ 1,000 ML ONE (17:09)
[2017-11-26] MEDS ORDERED: MIDAZOLAM HCL 5 MG/5 ML VIAL ONE (17:19)
[2017-11-26] MEDS ORDERED: ADENOSINE STRESS TEST INJ 90 MG/30 ML VIAL ONE (17:54)
[2017-11-26] MEDS ORDERED: MIDAZOLAM HCL 2 MG/2 ML VIAL ONE (18:25)
[2017-11-26] MEDS ORDERED: ONDANSETRON HCL 4 MG/2 ML VIAL ONE (18:32)
[2017-11-26] MEDS ORDERED: TICAGRELOR 90 MG TAB PO ONE (18:37)
[2017-11-26] MEDS ORDERED: ASPIRIN 81 MG CHEW TAB ONE (18:37)
--- NOTE | 2017-11-26 18:56 | CATHPROC ---
CHORD HIS Report Study Information Study Number Admission Scheduled Start Study Start [id number] Nov 25 2017 9:56PM 11/26/2017 Nov 26 2017 4:30PM [facility] Cardiac Catheterization Admit Source Facility Department Emergency department [facility] - [facility] [facility] Physician and Clinical Staff Initial Rico Lozano Spraying Machine Operator Marisela Dumont,RN Spraying Machine Operator Siena White RN Recorder Mer Will,RT(R) Scrub Jovi Sarmiento RCIS(BS) Procedures Performed Procedure Location (Site) Vessel Name Angiogram LV LV Ventricle Coronary Angiograms LCA Left Coronary Coronary Angiograms RCA Right Coronary Drug Eluting Inflatio LAD Prox Left Coronary L Heart Cath PTCA LAD Prox Left Coronary Wire insertion Fem Art (right) Femoral Art Equipment Time Portrait Artist Description Size Mfg Part Number Used/Scraped TRANSDUCER, Novocor Medical SystemsLIDA [id number] 16:35 IWT * Used W/STOCKCOCK *[id number] *[id number] *[id number] *[id number] *[id number] *[id number] *[id number] 18:36 DAIG/[employer]. [employer] MEDICAL ANGIOSEAL, FR6 VIP FR 6 Used *[id number] 16:35 MEDLINE INDUSTRIES PACK, CCL CUSTOM * Used *[id number] 16:35 MEDLINE PACER PEN, SKIN DUAL W/ RULER * Used *[id number] 18:13 MEDTRONIC BALLOON, 2.5 X 15MM EUPHORA 15MM Used *[id number] BALLOON, 2.75 X 12MM NC [id number] 18:28 MEDTRONIC 12MM Used EUPHORA *[id number] 18:21 MEDTRONIC STENT, 2.75 30MM KIRAN 2.75 30MM [id number] 18:17 ZEturf 30 MELISSA INDEFLATOR Used *[id number] 18:06 Cantargia MEDICAL SHEATH, FR6.5 PRELUDE 11CM FR 6.5 038ACT Used *[id number] 16:35 ZEturf WIRE, 3MMJ .035 180CM 180CM Used *[id number] PROBE COVER, STERILE [id number] 16:35 MICROTEK MEDICAL * Used ULTRASOUND W/ GEL *[id number] 16:35 NAMIC MANIFOLD, 4 PORT * Used *[id number] 16:35 NAMIC TUBING, HIGH PRESSURE 48" 48" Used *[id number] 16:35 NYCOMED OMNIPAQUE, 350 MG, 150ML 150ML [id number] Used [id number] 16:35 [employer] MEDICAL BLANKET,WARM AIR CCL * Used *[id number] 16:35 TERUMO MEDICAL SHEATH, FR5 TERUMO (10CM) FR 5 Used *[id number] 17:54 [place]OL[place] PRIME WIRE, VERRATA 185CM 185CM 11337 *[id number] Used Equipment Model, Serial, Lot Number and Expiration Data Description Model Number Serial Number Lot Number Expiration Date ANGIOSEAL, FR6 VIP [id number] 07-17-2018 BALLOON, 2.75 X 12MM NC [id number] 07-16-2019 EUPHORA STENT, 2.75 30MM KIRAN [id number] 06-27-2019 History: Current Medications Medication Dosage/Unit Route Frequency Last Date/Time Taken ASA History: Allergies Allergy Reaction No Known Allergies History: Risk Factors Family History of Hypertension Dyslipidemia Previous AL Previous Heart Failure Premature CAD Yes Yes Yes No No Prior Valve Prior PCI Prior CABG Surgery No No No Cerebrovascular Peripheral Artery Chronic Lung On Dialysis Diabetes Diabetes Therapy Disease Disease Disease No No No Yes Yes Oral History: Symptoms/Diagnosis Selection Items Chest pain History: Stress Tests Stress or Imaging Studies Performed Yes Standard Exercise Stress Test No Stress Echo No Stress Test SPECT Stress Test SPECT Result Stress Test SPECT Ischemia Risk/Extent Yes Positive Intermediate Stress Test CMR No Cardiac CTA Coronary Calcium Score No No History: Other Disease Selection Items Gerd History: Other Current Smoker Method Quit Packs a Day Years Used Pack Years No Cigarettes 34 Years Ago 1 7 7 Labs Hgb (g/dl) Hct (%) RBC (MIL/MM3) WBC (l/cumm) Platelets (thousands) 11.60-17.00 35.00-51.00 4.00-5.90 4.00-11.00 150.00-450.00 13.5 40.3 4.9 7.4 252 Glucose (mg/dl) BUN (mg/dl) Creatinine (mg/dl) BUN:Creatinine (1:x) 74.00-106.00 7.00-18.00 0.50-1.30 10.00-20.00 101 7 0.7 10 Na (meq/l) K (meq/l) Cl (meq/l) CO2 (mmol/L) 136.00-145.00 3.50-5.10 98.00-107.00 21.00-32.00 138 4 103 26.7 PT (sec) PTT (sec) INR (PTT:PT) 9.80-11.60 24.30-30.10 0.90-1.10 10.7 25.2 1.1 Troponin I (ng/ml) CPK (u/l) CPK-MB (ng/ML) 0.02-0.05 26.00-308.00 0.50-3.60 0.02 109 0.5 Medication Medication Total Dose (Bolus/Oral) Medication Total Dosage/Unit 1% XYLOCAINE 20 mL ADENOSINE 999 mL/hr ASPIRIN 324 mg BRILINTA 180 mg FENTANYL 100 mcg HEPARIN 34801 units NTG (IC) 400 mcg VERSED 7 mg ZOFRAN 4 mg Medications (Bolus/Oral) Medication Time Given Dosage/Unit Administered By Reason VERSED 11/26/2017 5:20:30 PM 2 mg Adamy, Siena 2 mg VERSED given in lab by Siena White RN in Left Hand via Peripheral IV. Ordered by Kathy Acuna. FENTANYL 11/26/2017 5:21:12 PM 50 mcg Adamy, Siena 50 mcg FENTANYL given in lab by Siena White RN in Left Hand via Peripheral IV. Ordered by Rico Wiseman. VERSED 11/26/2017 5:28:18 PM 2 mg Adamy, Siena 2 mg VERSED given in lab by Siena White RN in Left Hand via Peripheral IV. Ordered by Kathy Acuna. FENTANYL 11/26/2017 5:29:28 PM 50 mcg Adamy, Siena 50 mcg FENTANYL given in lab by Siena White RN in Left Hand via Peripheral IV. Ordered by Rico Wiseman. 1% XYLOCAINE 11/26/2017 5:33:38 PM 20 mL Rico Acuna 20 mL 1% XYLOCAINE given in lab by Rico Acuna in Right Groin via Subcutaneous. HEPARIN 11/26/2017 6:00:50 PM 9000 units Siena White 9000 units HEPARIN given in lab by Siena White RN in Left Hand via Peripheral IV. Ordered by Rico Rust. ADENOSINE 11/26/2017 6:03:20 PM 999 mL/hr Siena White 999 mL/hr ADENOSINE given in lab by Siena White RN in Left Hand via Intra-coronary. Pump/Drip Fl ow = 0 ml/hr using [Solution Name]. Ordered by Rico Acuna. HEPARIN 11/26/2017 6:11:07 PM 3000 units Siena White 3000 units HEPARIN given in lab by Siena White RN in Left Hand via Peripheral IV. Ordered by Rico Rust. NTG (IC) 11/26/2017 6:15:59 PM 200 mcg Jovi Sarmiento 200 mcg NTG (IC) given in lab by Jovi Sarmiento MICROBIOLOGY LAB MANAGER(BS) in Right Groin via Intra-coronary. Ordered by Rico Weathers. NTG (IC) 11/26/2017 6:25:31 PM 200 mcg Jovi Sarmiento 200 mcg NTG (IC) given in lab by Jovi Sarmiento MICROBIOLOGY LAB MANAGER(BS) in Right Groin via Intra-coronary. Ordered by Rico Weathers. VERSED 11/26/2017 6:26:52 PM 2 mg Jayla Whitefer 2 mg VERSED given in lab by Siena White RN in Left Hand via Peripheral IV. Ordered by Kathy Acuna. ZOFRAN 11/26/2017 6:32:28 PM 4 mg Tahir Dumonton 4 mg ZOFRAN given in lab by Marisela Dumont RN in Left Hand via Central IV. Ordered by Rachel Acuna VERSED 11/26/2017 6:36:00 PM 1 mg Siena White 1 mg VERSED given in lab by Siena White RN in Left Hand via Peripheral IV. Ordered by Kathy Acuna. BRILINTA 11/26/2017 6:41:50 PM 180 mg Hesher, Marisela 180 mg BRILINTA given in lab by Marisela Dumont, RYAN via Oral. Ordered by Rico Acuna. ASPIRIN 11/26/2017 6:42:09 PM 324 mg Marisela Dumont 324 mg ASPIRIN given in lab by Marisela Dumont, RYAN via Oral. Ordered by Rico Acuna. Medication (Drip) Medication Time Given Dosage/Unit Concentration/Unit Diluent (ml) Solution ADENOSINE DRIP 11/26/2017 6:04:39 PM 999 units/hr 0 STOPPED 999 units/hr ADENOSINE DRIP STOPPED given in lab by Siena White RN in Left Hand via Peripheral I V. Pump/Drip Flow = 0 ml/hr using [Solution Name]. Ordered by Rico Acuna. IV Solutions 11/26/2017 5:05:01 PM 50 mL (IV) NaCl .9 IV Solutions given in lab by Marisela Dumont RN in Left Hand via Peripheral IV. Pump/Drip Flow using NaCl .9. Initial Case Assessment Cardiovascular HR Rhythm NIBP Chest Pain 71 SR 119/87 0 Skin color Skin Normal Warm Neurological State Oriented to time-place- Alert Moves all extremities person Respiration - General Respiration Rate SpO2 (%) (B/min) 14 97 Chronological Log Time Study Chronological Log 17:04:49 Patient arrived via Bed. 17:04:49 Patient Name, D.O.B, / Armband Verified By R.N. 17:04:50 Consent signed by the physician and the patient and verified by the [facility] [facility] staff. 17:04:50 Pre-op and post- op instructions given; patient acknowledges understanding of instructions . 17:04:51 Verbal Stimulation=2 Physical Stimulation=2 Airway=2 Respiration=2 TOTAL=8. (0=absent, 1=l imited, 2=present) 17:04:51 Presedation assessment performed by [facility] Supervisor RN. 17:04:52 Immediate Presedation assesment performed by physician. 17:04:56 Patient has been NPO for More than 6Hrs. 17:04:56 Skin Breakdown- none 17:04:58 Patient Warmer Placed on the Table. 17:04:59 Nakul Prominences Protected 17:05:00 A # 20 IV was noted in the Hand (left). Grade = 0 17:05:01 IV Solutions given in lab by Marisela Dumont RN in Left Hand via Peripheral IV. Pump/Drip Flow using NaCl .9. 17:05:01 History and physical on the chart or being dictated. 17:14:14 Reference ECG taken Assessment: Initial Case, HR=71 BPM, Rhythm=SR, AADL=930/87 mmhg, Chest Pain=0, Color=Normal, Skin = Warm 17:14:25 Neurological: State=Alert, Ox3, DAMIAN Respiration: Resp=14 B/min, SpO2=97 % Vitals capture started with the following parameters, Patient=Adult, Interval=5 min, Initial P qtzcbzo=586 mmHg, 17:14:27 Deflation Rate=5 mmHg, Cuff placed on Left Arm 17:15:32 HR=72 bpm, AWKE=228/87 mmhg, SpO2=97.0 %, Resp=14 B/min 17:18:31 Bilateral groins prepped with 2% chlorhexidine, and draped after a 3 minute waiting time. 17:19:44 paged 17:20:30 2 mg VERSED given in lab by Siena White RN in Left Hand via Peripheral IV. Ordered by Rico Acuna. 17:21:12 50 mcg FENTANYL given in lab by Siena White RN in Left Hand via Peripheral IV. Ordere d by Rico Acuna. 17:21:48 Vitals capture stopped. Vitals capture started with the following parameters, Patient=Adult, Interval=5 min, Initial P wdlprti=827 mmHg, 17:22:39 Deflation Rate=5 mmHg, Cuff placed on Left Arm 17:23:27 HR=76 bpm, XZKO=467/74 mmhg, SpO2=98.0 %, Resp=13 B/min 17:25:23 MD responded 17:25:36 Pressure channel 1 zeroed. 17:28:18 HR=73 bpm, FUYB=090/85 mmhg, SpO2=98.0 %, Resp=20 B/min 17:28:18 2 mg VERSED given in lab by Siena White, RYAN in Left Hand via Peripheral IV. Ordered by Rico Acuna. 17:29:28 50 mcg FENTANYL given in lab by Siena White, RYAN in Left Hand via Peripheral IV. Ordered by Rico Acuna. 17:30:09 MD arrived. Time Out. Correct patient, correct procedure, correct physician, power injector loaded, or not loaded with contrast with 17:33:14 surgical team present. Time Out Concurred by MD and individual staff in procedure. 17:33:31 Case Start 17:33:38 20 mL 1% XYLOCAINE given in lab by Rico Acuna in Right Groin via Subcutaneous. 17:33:54 HR=66 bpm, RHRQ=030/71 mmhg, SpO2=96.0 %, Resp=13 B/min 17:37:00 Access site was Right Femoral Artery via ultrasound. 17:37:16 A SHEATH, FR5 TERUMO (10CM) FR 5 was advanced into the Fem Art (right) using the Percutaneo us technique. A PIGTAIL ANG. INFINITI CATHETER FR 5 was advanced over a wire. OMNIPAQUE, 350 MG, 150ML 150ML was used 17:37:28 for injections. 17:38:12 HR=70 bpm, AWGC=036/85 mmhg, SpO2=94.0 %, Resp=16 B/min Recorded Pressure: LV, HR=75, Condition=Condition 1 17:38:39 (Left Ventricle) LV 124/10/16 17:40:15 The LV was injected at 10 cc/sec for a total of 30. OMNIPAQUE, 350 MG, 150ML 150ML used. Recorded Pressure: LV, Ao, HR=74, Condition=Condition 1 17:41:01 (Left Ventricle) LV 128/7/12, (Aorta) Ao 142/88/112 17:41:14 Catheter was removed A JL 4.0 INFINITI CATHETER FR 5 was advanced over a wire. OMNIPAQUE, 350 MG, 150ML 150ML was us ed for 17:41:57 injections. 17:42:10 The LCA was injected and visualized at various angles. OMNIPAQUE, 350 MG, 150ML 150ML used . Recorded Pressure: Ao, HR=73, Condition=Condition 1 17:42:16 (Aorta) Ao 132/82/103 17:43:50 HR=74 bpm, DLFK=253/82 mmhg, SpO2=96.0 %, Resp=14 B/min 17:44:32 Catheter was removed A AR MOD INFINITI CATHETER FR 5 was advanced over a wire. OMNIPAQUE, 350 MG, 150ML 150ML was us ed for 17:44:48 injections. 17:45:27 The RCA was injected and visualized at various angles. OMNIPAQUE, 350 MG, 150ML 150ML used . 17:48:16 HR=82 bpm, ACBT=537/79 mmhg, SpO2=94.0 %, Resp=8 B/min 17:53:17 HR=75 bpm, XKNE=615/82 mmhg, SpO2=94.0 %, Resp=12 B/min 17:58:08 A WIRE, 3MMJ .035 180CM 180CM was inserted via Fem Art (right). 17:58:14 Catheter was removed 17:58:16 HR=76 bpm, RMYC=342/76 mmhg, SpO2=93.0 %, Resp=16 B/min A JL 4.0 INFINITI CATHETER FR 5 was advanced over a wire. OMNIPAQUE, 350 MG, 150ML 150ML was us ed for 17:59:14 injections. 18:00:50 9000 units HEPARIN given in lab by Siena White RN in Left Hand via Peripheral IV. Orde red by Rico Acuna. 18:01:24 Flow Wire was was placed in the LAD Mid. The FFR measures 0.76 percent. 18:03:17 HR=74 bpm, FKWX=539/80 mmhg, SpO2=95.0 %, Resp=20 B/min 999 mL/hr ADENOSINE given in lab by Siena White RN in Left Hand via Intra-coronary. Pump/D rip Flow = 0 ml/hr 18:03:20 using [Solution Name]. Ordered by Rico Acuna. 999 units/hr ADENOSINE DRIP STOPPED given in lab by Siena White RN in Left Hand via Periph eral IV. Pump/Drip 18:04:39 Flow = 0 ml/hr using [Solution Name]. Ordered by Rico Acuna. 18:05:16 The PRIME WIRE, VERRATA 185CM 185CM was removed. 18:05:21 Catheter was removed 18:05:49 Activated Clotting Time Drawn A SHEATH, FR6.5 PRELUDE 11CM FR 6.5 was exchanged in the Fem Art (right). This was necessary in order to 18:06:17 accomodate a larger catheter. A XBLAD 3.5 GUIDE CATHETER FR 6 was advanced over a wire. OMNIPAQUE, 350 MG, 150ML 150ML was us ed for 18:08:12 injections. 18:08:16 HR=74 bpm, XACU=737/75 mmhg, SpO2=94.0 %, Resp=24 B/min 18:09:46 ACT (Normal Range 90-180) = 230 After removing the current catheter a XBLAD 4.0 GUIDE CATHETER FR 6 was advanced over a WIRE, 3 MMJ .035 180CM 18:10:56 180CM. 18:11:07 3000 units HEPARIN given in lab by Siena White RN in Left Hand via Peripheral IV. Orde red by Rico Acuna. 18:12:19 A WIRE, ATW MARKER 195CM 195CM was inserted via Fem Art (right). 18:13:15 HR=80 bpm, UGLF=237/80 mmhg, SpO2=96.0 %, Resp=19 B/min 18:13:53 Interventional wire has crossed the lesion 18:15:59 200 mcg NTG (IC) given in lab by Jovi Sarmiento RCIS(BS) in Right Groin via Intra-coronary. Or dered by Rico Acuna. A BALLOON, 2.5 X 15MM EUPHORA 15MM was inserted over WIRE, ATW MARKER 195CM 195CM via the Fem A rt 18:16:00 (right). A BALLOON, 2.5 X 15MM EUPHORA 15MM over a WIRE, ATW MARKER 195CM 195CM in the LAD Prox was infl ated 18:16:33 using a 30 MELISSA INDEFLATOR at 8 melissa for 50 sec. A BALLOON, 2.5 X 15MM EUPHORA 15MM over a WIRE, ATW MARKER 195CM 195CM in the LAD Prox was infl ated 18:17:51 using a 30 MELISSA INDEFLATOR at 12 melissa for 15 sec. A BALLOON, 2.5 X 15MM EUPHORA 15MM over a WIRE, ATW MARKER 195CM 195CM in the LAD Prox was infl ated 18:18:22 using a 30 MELISSA INDEFLATOR at 12 melissa for 10 sec. 18:18:26 HR=77 bpm, MNXC=405/30 mmhg, SpO2=95.0 %, Resp=31 B/min 18:19:10 Balloon Removed. 18:20:52 Activated Clotting Time Drawn A STENT, 2.75 30MM KIRAN 2.75 30MM was advanced through a XBLAD 4.0 GUIDE CATHETER FR 6 over a W FIL[place], ATW 18:21:10 MARKER 195CM 195CM. A STENT, 2.75 30MM KIRAN 2.75 30MM was deployed using a 30 MELISSA INDEFLATOR at 12 atmospheres for 30 seconds 18:23:31 in the LAD Prox. 18:23:52 HR=82 bpm, CYHT=726/86 mmhg, KjH2=397.0 %, Resp=13 B/min 18:24:39 Re-inflated the stent balloon in the LAD Prox to 15 MELISSA for 15 seconds. 18:25:12 Delivery device removed 18:25:24 ACT (Normal Range 90-180) = 280 18:25:31 200 mcg NTG (IC) given in lab by Jovi Sarmiento RCIS(BS) in Right Groin via Intra-coronary. Or dered by Rico Acuna. 18:26:52 2 mg VERSED given in lab by Siena White RN in Left Hand via Peripheral IV. Ordered by Rico Acuna. 18:28:20 HR=83 bpm, DHQK=720/89 mmhg, SpO2=88.0 %, Resp=17 B/min A BALLOON, 2.75 X 12MM NC EUPHORA 12MM was inserted over WIRE, ATW MARKER 195CM 195CM via the F em Art 18:29:04 (right). A BALLOON, 2.75 X 12MM NC EUPHORA 12MM over a WIRE, ATW MARKER 195CM 195CM in the LAD Prox was inflated 18:29:44 using a 30 MELISSA INDEFLATOR at 20 melissa for 50 sec. A BALLOON, 2.75 X 12MM NC EUPHORA 12MM over a WIRE, ATW MARKER 195CM 195CM in the LAD Prox was inflated 18:31:27 using a 30 MELISSA INDEFLATOR at 25 melissa for 30 sec. A BALLOON, 2.75 X 12MM NC EUPHORA 12MM over a WIRE, ATW MARKER 195CM 195CM in the LAD Prox was inflated 18:31:35 using a 30 MELISSA INDEFLATOR at 12 melissa for 10 sec. A BALLOON, 2.75 X 12MM NC EUPHORA 12MM over a WIRE, ATW MARKER 195CM 195CM in the LAD Prox was inflated 18:31:47 using a 30 MELISSA INDEFLATOR at 12 melissa for 10 sec. A BALLOON, 2.75 X 12MM NC EUPHORA 12MM over a WIRE, ATW MARKER 195CM 195CM in the LAD Prox was inflated 18:31:59 using a 30 MELISSA INDEFLATOR at 12 melissa for 30 sec. 18:32:28 4 mg ZOFRAN given in lab by Marisela Dumont, RYAN in Left Hand via Central IV. Ordered by Rico Rust. 18:33:05 Balloon Removed. 18:33:21 EB=568 bpm, FEKN=918/105 mmhg, SpO2=95.0 %, Resp=12 B/min 18:34:50 Wire removed 18:35:46 Catheter was removed 18:36:00 1 mg VERSED given in lab by Siena White RN in Left Hand via Peripheral IV. Ordered by Rico Acuna. 18:36:28 An injection in the Fem Art (right) was made through the SHEATH, FR6.5 PRELUDE 11CM FR 6.5 . 18:38:25 HR=85 bpm, TPOF=004/78 mmhg, SpO2=94.0 %, Resp=25 B/min 18:40:02 Case End 18:41:18 In the Fem Art (right) the SHEATH, FR6.5 PRELUDE 11CM FR 6.[address] by Rico Fang. 18:41:50 180 mg BRILINTA given in lab by Marisela Dumont, RYAN via Oral. Ordered by Rico Acuna. 18:42:09 324 mg ASPIRIN given in lab by Marisela Dumont RN via Oral. Ordered by Rico Acuna. 18:43:24 HR=80 bpm, WSVI=926/103 mmhg, SpO2=98.0 %, Resp=15 B/min 18:44:05 Sterile dressing applied to site 18:44:06 No case complications noted. 18:44:08 Bedside Report will be given. 18:44:10 Implantable Device card placed in patient's chart. 18:44:27 A Left Heart Cath was performed. 18:48:19 HR=79 bpm, TXXI=564/66 mmhg, SpO2=98.0 %, Resp=18 B/min 18:49:30 Vitals capture stopped. 18:50:00 Patient moved to stretcher End Study - Contrast Media Used In Study Contrast Total Opened (mL) Total Used (mL) Total Wasted (mL) Omnipaque 225 225 0 End Study - Maximum Contrast Load Max Contrast Load (mL) 975.0 End Study - Radiation Exposure Fluoro Time (minutes) 9.0 End Study - Patient Disposition Complications Transferred To Interventional Outcome No Telemetry Bed successful
[2017-11-26] MEDS ORDERED: NITROGLYCERIN INJ 5 ML ONE (19:13)
[2017-11-26] MEDS ORDERED: SODIUM CHLOR 0.9% 1000 ML INJ 1,000 ML IV SCH (19:28)
[2017-11-26] MEDS ORDERED: MISC INFORMATION XX ONE (19:30)
[2017-11-26] MEDS ORDERED: TEMAZEPAM 15 MG CAP PO PRN (19:30)
[2017-11-26] MEDS ORDERED: ATORVASTATIN 40 MG TAB PO SCH (21:00)
--- NOTE | 2017-11-26 21:26 | MB ---
cc: RICO ACUNA DATE OF CONSULTATION 11/26/2017 HISTORY Ms. Ingram is a 56-year-old white female with history of iym-bxqxcfa-sgpeillcw diabetes mellitus and obesity. She developed substernal chest pressure yesterday morning associated with vertigo which was of moderate intensity. She has not had any dyspnea, diaphoresis, nausea, vomiting. She was admitted for observation and underwent nuclear myocardial perfusion study today which showed anterolateral and septal ischemia. PAST MEDICAL HISTORY 1. Positive for type 2 diabetes mellitus. 2. Gastroesophageal reflux disease. 3. Chronic bronchitis. 4. Vertigo. 5. Obesity. 6. History of tubal ligation. MEDICATIONS Include: 1. Calcium. 2. Aspirin. 3. Women's multivitamin. 4. DuoNeb. 5. Metformin. 6. Omeprazole. 7. Rashard aspirin. ALLERGIES None. SOCIAL HISTORY The patient does not smoke. She does not drink alcohol excessively. FAMILY HISTORY Positive for heart disease. REVIEW OF SYSTEMS Otherwise negative. PHYSICAL EXAMINATION VITAL SIGNS: Blood pressure 120/77, pulse 74 and regular. HEENT: Negative. NECK: 2+ carotid upstrokes. No bruits. LUNGS: Clear. HEART: Regular with no murmur, gallop or rub. ABDOMEN: Soft. No bruits. EXTREMITIES: Without edema. 2+ distal pulses. NEUROLOGIC: Examination is grossly nonfocal. EKG was reviewed and showed normal sinus rhythm with normal axis and intervals. No acute changes. LVH. LABORATORY DATA Hemoglobin 13.5. Potassium 4.0, creatinine 0.8. Troponin negative times three. BNP 10. AST 51, ALT 58. DIAGNOSES 1. Unstable angina. 2. Abnormal nuclear myocardial perfusion study. 3. Type 2 diabetes mellitus. 4. Obesity. DISPOSITION Ms. Ingram will undergo cardiac catheterization and coronary intervention if necessary. She understands the risks and benefits, and wishes to proceed. I recommend to continue aggressive modification of her cardiac risk factors. Rico Acuna MD OMisti/KK /4:46 PM /8:33 PM MARA
[2017-11-26] MEDS: CARVEDILOL 3.125 MG TAB PO SCH (22:42)
[2017-11-27] VITALS (11 sets, daily range): BP systolic 88–114; BP diastolic 48–77; PULSE 62–86; RESP 16–18; TEMP 97.6–98.6; O2SAT 94–95
[2017-11-27 06:32] LABS: AUTOMATED NEUTROPHIL # 4.4 TH/MM3 (1.8-7.7); BASOPHIL % 0.5 % (0.0-2.0); EOSINOPHIL # 0.1 TH/MM3 (0-0.4); EOSINOPHIL % 0.9 % (0.0-4.0); HEMATOCRIT 36.1 % (35.0-46.0); LYMPH % 26.2 % (9.0-44.0); LYMPHOCYTE # 1.8 TH/MM3 (1.0-4.8); MEAN CELL VOLUME 81.4 FL (80.0-100.0); MEAN CORPUSCULAR HEMOGLOBIN 27.1 PG (27.0-34.0); MEAN CORPUSCULAR HGB CONC 33.3 % (32.0-36.0); MEAN PLATELET VOLUME 8.5 FL (7.0-11.0); MONO % 8.2 % (0.0-8.0); MONOCYTE # 0.6 TH/MM3 (0-0.9); NEUT % 64.2 % (16.0-70.0); PLATELET COUNT 216 TH/MM3 (150-450); RED BLOOD COUNT 4.43 MIL/MM3 (4.00-5.30); RED CELL DISTRIBUTION WIDTH 15.5 % (11.6-17.2); WHITE BLOOD COUNT 6.9 TH/MM3 (4.0-11.0)
[2017-11-27 07:20] LABS: BICARBONATE 26.8 MEQ/L (21.0-32.0); BLOOD UREA NITROGEN 9 MG/DL (7-18); CALCIUM 7.6 MG/DL (8.5-10.1); CHLORIDE 102 MEQ/L (98-107); CHOLESTEROL 155 MG/DL (120-200); CHOLESTEROL/ HDL RATIO 3.98 RATIO; CREATININE 0.56 MG/DL (0.50-1.00); GLOMERULAR FILTRATION RATE 112 ML/MIN (>89); GLUCOSE,RANDOM 116 MG/DL (74-106); HDL CHOLESTEROL 38.9 MG/DL (40.0-60.0); LDL CHOLESTEROL 87 MG/DL (0-99); SODIUM (NA) 137 MEQ/L (136-145); TRIGLYCERIDES 144 MG/DL (42-150)
[2017-11-27] MEDS ORDERED: ATOR40TA16 PO (08:51)
[2017-11-27] MEDS ORDERED: NITR0.4S SL (08:51)
[2017-11-27] MEDS ORDERED: CARV3.125 PO (08:51)
[2017-11-27] MEDS ORDERED: LISI-519 PO ×2 (08:51→13:14)
[2017-11-27] MEDS ORDERED: PANT20 PO (08:51)
[2017-11-27] MEDS ORDERED: BRIL90TA PO (08:51)
[2017-11-27] MEDS ORDERED: ASPIRIN 81 MG CHEW TAB PO SCH (09:00)
[2017-11-27] MEDS ORDERED: LISINOPRIL 5 MG TAB PO SCH (09:00)
[2017-11-27] MEDS ORDERED: TICAGRELOR 90 MG TAB PO SCH (09:00)
--- NOTE | 2017-11-27 09:06 | MA ---
cc: AMINA LEDESMA DATE 11/26/2017 INDICATION Unstable angina, intermediate probability nuclear myocardial perfusion study, diabetes mellitus. PROCEDURE PERFORMED 1. Retrograde left heart catheterization with left ventriculography and selective coronary angiography 2. Fractional flow reserve determination of severe stenosis of the proximal LAD. 3. Angioplasty and stenting of the proximal left anterior descending artery. 4. Moderate sedation. ACCESS SITE Right femoral artery. EQUIPMENT USED A 5-Montserratian pigtail catheter, a 5-Montserratian JL-4 and AR modified coronary catheters. XB LAD 4.0 guide, marker wire, 2.5 x 15 mm balloon for predilatation, 2.75 x 30 mm stent Cristobal stent at 15 atmospheres, postdilated with 2.75 x 12 mm NC balloon at 25 atmospheres. MEDICATIONS 1. Versed IV 2. Fentanyl IV 3. Heparin IV 4. Nitroglycerin IC 5. Brilinta 180 mg p.o. 6. Aspirin 325 mg p.o. CONTRAST Omnipaque contrast 225 cc COMPLICATIONS None BLOOD LOSS Less than 10 cc. METHOD OF HEMOSTASIS Manual compression RESULTS HEMODYNAMICS Heart rate 75 beats per minute. Left ventricular end-diastolic pressure 7 mmHg. Left ventricle 130/7, aorta 130/82/103. LEFT VENTRICULOGRAPHY Left ventricular ejection fraction 50%. Wall motion normal. No mitral regurgitation FFR Fractional flow reserve determination of severe stenosis of the proximal left anterior descending coronary artery: FFR 0.76. CORONARY ANGIOGRAPHY Left main coronary artery patent. The proximal LAD 80% stenosis. Mid and distal LAD patent. First diagonal artery is small and patent. The second diagonal artery is patent. The left circumflex artery is patent. OM1 patent. The right coronary artery is a dominant large vessel with 20% proximal stenosis. PDA is patent, PLV patent. The stenosis in the proximal LAD was 25 mm long. Pre-RHETT flow 3, post-RHETT flow 3, post-stenosis 0. POST INTERVENTION ANGIOGRAPHY Excellent patency of the stented segment and no evidence of dissection, thrombosis or distal embolization. DIAGNOSIS 1. Severe coronary artery disease with 80% stenosis of the proximal left anterior descending coronary artery. 2. Borderline normal left ventricular systolic function. 3. Successful angioplasty and stenting of the proximal left anterior descending artery. DISPOSITION Ms. Ingram was found to have evidence of severe stenosis of the proximal left anterior descending artery which was hemodynamically significant with FFR of 0.76. The patient underwent angioplasty and stenting of the proximal LAD with a good result. Her overall left ventricular function is preserved. I recommend very aggressive modification of her cardiac risk factors including therapy for dyslipidemia and weight loss. The patient will be monitored on telemetry after her procedure. I will see her back for followup in our office after discharge. MD CAMDEN Momin/JENNIFER /6:46 PM /8:49 AM MTDD
[2017-11-27] MEDS: CARVEDILOL 3.125 MG TAB PO SCH (09:13)
[2017-11-27] MEDS: PANTOPRAZOLE SOD 20 MG DELAYED RELEASE TAB PO SCH (09:14)
[2017-11-27] MEDS: SODIUM CHLORIDE 0.9% FLUSH 10 ML FLUSH IV FLUSH SCH (09:17)
--- NOTE | 2017-11-27 12:54 | PD.CARD.PN ---
Objective Medications Current Medications Medications (Trade) Dose Ordered Sig/Zhou Route Start Time Stop Time Status Last Admin (Nitrostat Sl) 0.4 mg Q5M PRN SL 11/25/17 20:30 (NS Flush) 2 ml UNSCH PRN IV FLUSH 11/25/17 22:00 (NS Flush) 2 ml BID IV FLUSH 11/26/17 09:00 11/26/17 22:41 (Tylenol) 500 mg Q4H PRN PO 11/26/17 08:00 (Zofran Inj) 4 mg Q6H PRN IV PUSH 11/26/17 08:00 11/26/17 21:45 (Protonix) 20 mg DAILY PO 11/26/17 09:00 11/27/17 09:14 (Restoril) 15 mg HS PRN PO 11/26/17 19:30 11/26/17 22:42 (Aspirin Chew) 81 mg DAILY PO 11/27/17 09:00 11/27/17 09:12 (Brilinta) 90 mg BID PO 11/27/17 09:00 11/27/17 09:12 (Prinivil) 5 mg DAILY PO 11/27/17 09:00 11/27/17 09:14 (Lipitor) 40 mg HS PO 11/26/17 21:00 11/26/17 22:42 (Pneumovax-23 Inj) 25 mcg ONCE ONCE IM 11/28/17 10:00 11/28/17 10:01 (Coreg) 3.125 mg BID PO 11/27/17 21:00 Vital Signs / I&O Vital Signs Date Time Temp Pulse Resp B/P (MAP) Pulse Ox O2 Delivery O2 Flow Rate FiO2 11/27/17 12:11 74 11/27/17 11:49 97.6 73 18 88/48 (61) 95 11/27/17 11:01 86 11/27/17 10:03 78 11/27/17 09:00 74 11/27/17 08:00 68 11/27/17 07:50 97.8 73 18 103/74 (84) 94 11/27/17 07:21 70 11/27/17 03:00 98.6 62 16 114/68 (83) 95 11/26/17 23:00 98.5 69 16 120/68 (85) 96 11/26/17 19:00 98.3 76 18 138/72 (94) 96 11/26/17 14:09 97.5 74 18 122/77 (92) 94 I/O 11/26/17 11/26/17 11/26/17 11/27/17 11/27/17 11/27/17 07:00 15:00 23:00 07:00 15:00 23:00 Intake Total 0 ml 0 ml 1220 ml Balance 0 ml 0 ml 1220 ml Intake Oral 0 ml 0 ml 720 ml IV Total 500 ml # Voids 1 2 4 Physical Exam GENERAL: In NAD SKIN: Warm and dry. HEAD: Normocephalic. EYES: No scleral icterus. No injection or drainage. NECK: Supple, trachea midline. No JVD or lymphadenopathy. CARDIOVASCULAR: Regular rate and rhythm without murmurs, gallops, or rubs. RESPIRATORY: Breath sounds equal bilaterally. No accessory muscle use. GASTROINTESTINAL: Abdomen soft, non-tender, nondistended. MUSCULOSKELETAL: No cyanosis, or edema. Groin stable. Laboratory Laboratory Tests Test 11/27/17 04:44 White Blood Count 6.9 TH/MM3 Red Blood Count 4.43 MIL/MM3 Hemoglobin 12.0 GM/DL Hematocrit 36.1 % Mean Corpuscular Volume 81.4 FL Mean Corpuscular Hemoglobin 27.1 PG Mean Corpuscular Hemoglobin Concent 33.3 % Red Cell Distribution Width 15.5 % Platelet Count 216 TH/MM3 Mean Platelet Volume 8.5 FL Neutrophils (%) (Auto) 64.2 % Lymphocytes (%) (Auto) 26.2 % Monocytes (%) (Auto) 8.2 % Eosinophils (%) (Auto) 0.9 % Basophils (%) (Auto) 0.5 % Neutrophils # (Auto) 4.4 TH/MM3 Lymphocytes # (Auto) 1.8 TH/MM3 Monocytes # (Auto) 0.6 TH/MM3 Eosinophils # (Auto) 0.1 TH/MM3 Basophils # (Auto) 0.0 TH/MM3 CBC Comment DIFF FINAL Differential Comment Blood Urea Nitrogen 9 MG/DL Creatinine 0.56 MG/DL Random Glucose 116 MG/DL Calcium Level 7.6 MG/DL Sodium Level 137 MEQ/L Potassium Level 3.7 MEQ/L Chloride Level 102 MEQ/L Carbon Dioxide Level 26.8 MEQ/L Anion Gap 8 MEQ/L Estimat Glomerular Filtration Rate 112 ML/MIN Total Creatine Kinase 104 U/L Creatine Kinase MB 0.8 NG/ML Triglycerides Level 144 MG/DL Cholesterol Level 155 MG/DL LDL Cholesterol 87 MG/DL HDL Cholesterol 38.9 MG/DL Cholesterol/HDL Ratio 3.98 RATIO Assessment and Plan Problem List: (1) Angina pectoris ICD Codes: I20.9 - Angina pectoris, unspecified (2) CAD (coronary artery disease) ICD Codes: I25.10 - Atherosclerotic heart disease of [place] coronary artery without angina pectoris (3) Stented coronary artery ICD Codes: Z95.5 - Presence of coronary angioplasty implant and graft (4) Type 2 diabetes mellitus ICD Codes: E11.9 - Type 2 diabetes mellitus without complications Status: Acute (5) Morbid obesity ICD Codes: E66.01 - Morbid (severe) obesity due to excess calories Assessment and Plan No angina or CHF. Groin stable. Continue Brilinta, baby ASA, beta morales, MARGARITO-I , statin. DC home. F/u w me in 2 weeks. Rico Acuna MD Nov 27, 2017 12:54
[2017-11-27] MEDS ORDERED: METO25TA3 PO (13:14)
--- NOTE | 2017-11-27 14:26 | HHI.PR ---
Subjective Remarks Follow-up for N STEMI status post cardiac catheterization with stent placement. Patient is currently doing well. No chest pain, shortness of breath, fever or chills. Objective Vitals Vital Signs Date Time Temp Pulse Resp B/P (MAP) Pulse Ox O2 Delivery O2 Flow Rate FiO2 11/27/17 13:17 109/77 (88) 11/27/17 13:09 79 11/27/17 12:11 74 11/27/17 11:49 97.6 73 18 88/48 (61) 95 11/27/17 11:01 86 11/27/17 10:03 78 11/27/17 09:00 74 11/27/17 08:00 68 11/27/17 07:50 97.8 73 18 103/74 (84) 94 11/27/17 07:21 70 11/27/17 03:00 98.6 62 16 114/68 (83) 95 11/26/17 23:00 98.5 69 16 120/68 (85) 96 11/26/17 19:00 98.3 76 18 138/72 (94) 96 I/O 11/26/17 11/26/17 11/26/17 11/27/17 11/27/17 11/27/17 07:00 15:00 23:00 07:00 15:00 23:00 Intake Total 0 ml 0 ml 1220 ml Balance 0 ml 0 ml 1220 ml Intake Oral 0 ml 0 ml 720 ml IV Total 500 ml # Voids 1 2 4 Result Diagram: 11/27/17 0444 11/27/17 0444 Imaging Last Impressions Myocardial Perfusion Scan Nuc Med 11/26/17 0000 Signed Impressions: Service Date/Time: Sunday, November 26, 2017 11:18 - CONCLUSION: 1. Small focal regions of ischemia in the anterolateral wall and septal wall near the apex. 2. Normal wall motion with EF of 66%%. RISK CATEGORY: Low (<1%% Annual Mortality Rate) Wero Solares MD Chest X-Ray 11/25/17 6405 Signed Impressions: Service Date/Time: Saturday, November 25, 2017 15:06 - CONCLUSION: 1. No acute cardiopulmonary disease. Wero Solares MD Objective Remarks GENERAL: Alert, oriented 3, NAD. Morbid obesity. SKIN: Warm and dry. HEAD: Normocephalic. EYES: No scleral icterus. No injection or drainage. NECK: Supple, trachea midline. No JVD or lymphadenopathy. CARDIOVASCULAR: Regular rate and rhythm without murmurs, gallops, or rubs. RESPIRATORY: Breath sounds equal bilaterally. No accessory muscle use. GASTROINTESTINAL: Abdomen soft, non-tender, nondistended. MUSCULOSKELETAL: No cyanosis, or edema. BACK: Nontender without obvious deformity. No CVA tenderness. Procedures Cardiac catheterization 11/26/2017 1. Severe coronary artery disease with 80% stenosis of the proximal left anterior descending coronary artery. 2. Borderline normal left ventricular systolic function. 3. Successful angioplasty and stenting of the proximal left anterior descending artery. A/P Problem List: (1) CAD (coronary artery disease) ICD Code: I25.10 - Atherosclerotic heart disease of [place] coronary artery without angina pectoris (2) Type 2 diabetes mellitus ICD Code: E11.9 - Type 2 diabetes mellitus without complications Status: Acute (3) Morbid obesity ICD Code: E66.01 - Morbid (severe) obesity due to excess calories Assessment and Plan Ms. Ingram is a 56-year-old female with a history of type 2 diabetes, GERD who presented to the emergency department due to chest pain area patient subsequently underwent nuclear stress test which was abnormal. Patient underwent cardiac catheterization on 11/26/2017 and a stent was placed. - Coronary artery disease - Status post angioplasty and stenting of the proximal LAD. - Continue ticagrelor 90 mg twice a day, aspirin 81 mg daily, lisinopril 2.5 mg daily, metoprolol 12.5 mg by mouth twice a day. - Follow up with cardiology in 2 weeks. - Diabetes mellitus - Continue metformin 500 mg twice a day. - Morbid obesity - patient may benefit from bariatric surgery in the future. Full code. Ambulation. Discussed with cardiology and RN. Discharge patient to home Condition on discharge: Improved Heart healthy, diabetic Diet as tolerated Ad Alessandra activity Rx written: Ticagrelor 90 mg twice a day Atorvastatin 40 mg by mouth daily at bedtime Lisinopril 2.5 mg by mouth daily Metoprolol tartrate 12.5 mg by mouth twice a day Nitroglycerin 0.4 mg sublingual every 5 minutes when necessary Pantoprazole 20 mg by mouth daily Follow-up with primary care physician Barak Haile DO Nov 27, 2017 2:26 pm
--- NOTE | 2017-11-27 20:57 | EKG ---
Date Performed: 11/27/2017 Time Performed: 05:16:00 PTAGE: 56 years EKG: Sinus rhythm Low QRS voltages in precordial leads Borderline ECG NO PREVIOUS TRACING DOCTOR: Jamila Mendez Interpretating Date/Time 11/27/2017 20:56:14
--- NOTE | 2017-11-27 20:57 | EKG ---
Date Performed: 11/26/2017 Time Performed: 22:47:46 PTAGE: 56 years EKG: Sinus rhythm Low QRS voltages in precordial leads Borderline ECG SINCE PRIOR TRACING NO SIGNIFIACNT CHANGE PREVIOUS TRACING : 11/26/2017 10.23 DOCTOR: Jamila Mendez Interpretating Date/Time 11/27/2017 20:55:35
[2017-11-27] MEDS ORDERED: CARVEDILOL 3.125 MG TAB PO SCH (21:00)
[2017-11-28] MEDS ORDERED: PNEUMOCOCCAL POLYVALENT INJ 25 MCG/0.5 ML SYR IM ONE (10:00)
--- NOTE | 2017-11-28 15:59 | EKG ---
Date Performed: 11/26/2017 Time Performed: 10:23:29 PTAGE: 56 years EKG: Sinus rhythm NORMAL ECG NO PREVIOUS TRACING DOCTOR: Theodore Geiger Interpretating Date/Time 11/28/2017 15:58:24
--- NOTE | 2017-11-28 16:13 | TR ---
Date Performed: 11/26/2017 Time Performed: 11:40:20 DOCTOR: Theodore Geiger DRUG LIST: CLINICAL HISTORY: CHEST PAIN REASON FOR TEST: CHEST PAIN REASON FOR ENDING: OBSERVATION: CONCLUSION: Lexiscan stress test was performed under standard four minute protocol. Radionucl[place] e was injected one minute prior to ending the test. No electrocardiographic abormalities were present to suggest ischemia. Nuclear imaging and interpretation are pending. COMMENTS:
== END 2017-11-27 15:03 | disposition home or self-care (01) ==
LOC: NEPD 14:07 → NEDA 21:56 → NEDH 11-26 02:04 → NEPGCP 11-26 13:12 → HCIS 11-26 17:32
PROVIDERS: ADMIT Hospitalist; ATTEND Hospitalist
DX: I25.110 Atherosclerotic heart disease of native coronary artery with unstable angina pectoris (principal); E11.9 Type 2 diabetes mellitus without complications; K21.9 Gastro-esophageal reflux disease without esophagitis; R42 Dizziness and giddiness; I10 Essential (primary) hypertension; R11.2 Nausea with vomiting, unspecified; R19.7 Diarrhea, unspecified; R94.31 Abnormal electrocardiogram [ECG] [EKG]; M19.90 Unspecified osteoarthritis, unspecified site; E66.01 Morbid (severe) obesity due to excess calories; Z68.43 Body mass index [BMI] 50.0-59.9, adult; Z79.82 Long term (current) use of aspirin; Z79.84 Long term (current) use of oral hypoglycemic drugs
CPT/HCPCS: 71046; 78452; 80048; 80053; 80061; 82550; 82552; 83735; 83880; 84484; 85002; 85025; 85610; 85730; 92928; 93005; 93017; 93458; 93571; 96374; 96376; 99152; 99153; 99285; A9502; C1725; C1769; C1874; C1887; C1893; G0378; J0153; J1644; J2250; J2405; J2785; J3010; J7030; Q9967